=== PATIENT | male | born 1950 | race Caucasian/White ===

== ENCOUNTER 2021-08-05 09:36 | Outpatient (CLI) | payer MEDICARE, SELFPAY ==
--- NOTE | ~2021-08-05 | NM_ITS ---
EXAMINATION: NM bone scan whole body DATE: 08/05/2021 14:27 INDICATION: Prostate cancer TECHNIQUE: 24.8 mCi Tc-99m HDP was administered intravenously. Delayed whole-body scintigrams were o btained. COMPARISON: Chest radiograph and CT abdomen and pelvis dated 07/28/2021 FINDINGS: Likely degenerative joint centered uptake at the bilateral acromioclavicular joints, right greater th an left, at a few of the cervical facet joints and at several bilateral interphalangeal joints of the hands. No other suspicious foci of abnormal bone uptake to suggest metastatic disease. IMPRESSION: 1. No osseous metastatic disease. Reviewed, dictated and finalized at location A.
--- NOTE | ~2021-08-05 | CT_ITS ---
EXAMINATION: CT abdomen pelvis w con EXAM DATE: 08/05/2021 10:24 INDICATION: Prostate cancer. TECHNIQUE: Spiral CT of the abdomen and pelvis was performed following intravenous injection of 100 m L Omnipaque 350. Axial, coronal and sagittal images of the abdomen and pelvis were reviewed. The do se-length product (DLP) for this examination was 480.77 mGy-cm. The exposure was tailored according to patient size (auto mA exposure control), and iterative reconstruction (ASIR) was used as additiona l dose reduction technique. There is no prior study for comparison. FINDINGS: There is hepatic steatosis without suspicious focal lesion identified. Spleen, adrenal glan ds, pancreas are unremarkable. Gallbladder is unremarkable. No biliary obstruction. Portal and spl enic veins are patent. Kidneys enhance symmetrically. There is no hydronephrosis. The prostate is unremarkable. The bladder is unremarkable. There is no retroperitoneal or pelvic lymphadenopathy. Small bilateral inguinal fat-containing hernias. The appendix is normal. The stomach and small bowel are unremarkable. There is expected amount of c olonic stool. No free intraperitoneal gas. The heart is normal in size. There are no pericardial or pleural effusions. Triangular-shaped pleural-based nodule measuring about 10 x 15 mm, most likely small amount of pneumo david, or postinfectious residua but recommend 1-3 month follow-up chest CT to exclude possibility of l yvette cancer. If this persists a PET/CT would be appropriate. Biopsy somewhat challenging due to contig uity with the left hemidiaphragm. There is large hemangioma within the T10 vertebral body. There are no osteoblastic or osteolytic lesions identified. IMPRESSION: 1. Triangular-shaped pleural-based left lower lobe opacity appearance most consistent with infection or scarring but 1-3 month follow-up chest CT recommended and if this persists PET/CT may be appropri ate. 2. Hepatic steatosis. 3. No lymphadenopathy or osteoblastic disease. Reviewed, dictated and finalized at location B. IMPRESSION: 1. Triangular-shaped pleural-based left lower lobe opacity appearance most con sistent with infection or scarring but 1-3 month follow-up chest CT recommended and if this persists PET/CT may be appropriate. 2. Hepatic steatosis. 3. No lymphadenopathy or osteoblastic disease.
--- NOTE | ~2021-08-05 | XR_ITS ---
EXAMINATION: XR chest 2V DATE: 08/05/2021 10:06 INDICATION: Prostate cancer TECHNIQUE: PA and lateral views of the chest are obtained. COMPARISON: None available FINDINGS: The lungs are free of acute opacities. There is no pleural effusion or pneumothorax. The ca rdiomediastinal silhouette is normal. There is mild thoracic spondylosis. IMPRESSION: 1. No acute cardiopulmonary abnormality. Reviewed, dictated and finalized at location A.
[2021-08-05 10:18] LABS: Estimated Glomerular Filt Rate > 60
== END 2021-08-05 09:37 | disposition home or self-care (01) ==
PROVIDERS: PCP Family Medicine; Visit Provider Urology
DX: C61 Malignant neoplasm of prostate (principal); K76.0 Fatty (change of) liver, not elsewhere classified
CPT/HCPCS: 71046; 74177; 78306; A9561; Q9967

== ENCOUNTER 2021-09-03 07:38 | Outpatient (CLI) | payer MEDICARE, SELFPAY ==
--- NOTE | 2021-09-03 08:25 | ECG_ITS ---
Rate 60 [place] 184 QRSd 118 QT 417 QTc 418 --[place]-- P 62 QRS -2 T 39 SINUS RHYTHM Normal EKG NO PREVIOUS ECG AVAILABLE FOR COMPARISON Electronically Signed On 09-05-2021 20:44:24 CDT by Erica PERAZA
[2021-09-03 09:23] LABS: Alanine Aminotransferase 37 U/L (4-50); Albumin Level 4.2 g/dL (3.5-5.1); Alkaline Phosphatase 57 U/L (38-126); Anion Gap 7 mmol/L (8-16); Aspartate Amino Transferase 49 U/L (17-59); Bilirubin,Total 0.5 mg/dL (0.2-1.3); Blood Urea Nitrogen 20 mg/dL (9-20); Calcium 8.7 mg/dL (8.4-10.2); Carbon Dioxide 28 mmol/L (22-30); Chloride 103 mmol/L (98-107); Estimated Glomerular Filt Rate > 60; Glucose 84 mg/dL (65-110); Potassium 4.4 mmol/L (3.4-5.0); Sodium 138 mmol/L (137-145)
[2021-09-03 09:24] LABS: Partial Thromboplastin Time 28.6 SECONDS (22.3-36.8); Prothrombin Time 13.1 Seconds (11.1-14.7)
[2021-09-03 09:27] LABS: Basophils Percent Auto 0.4 % (0.2-1.2); Eosinophils Absolute Auto 0.2 K/mm3 (0-0.3); Eosinophils Percent Auto 3.1 % (0-4.4); Hematocrit 46.1 % (42.0-52.0); Immature Granulocyte Absolute 0.01 K/mm3 (0.00-0.031); Immature Granulocyte Percent A 0.2 % (0-0.5); Lymphocytes Absolute Auto 1.77 K/mm3 (0.9-3.2); Lymphocytes Percent Auto 36.3 % (18.3-44.2); Mean Corpuscular HGB Conc 32.5 g/dl (32-36); Mean Corpuscular Hemoglobin 31.1 pg (26-34); Mean Corpuscular Volume 95.4 fl (80-100); Mean Platelet Volume 10.6 fl (7.4-10.4); Monocytes Absolute Auto 0.5 K/mm3 (0.1-0.6); Monocytes Percent Auto 10.7 % (2.6-8.5); Neutrophils Absolute Auto 2.4 K/mm3 (1.3-6.7); Neutrophils Percent Auto 49.3 % (45.5-73.1); Platelet Count Result 212 k/mm3 (150-375); Red Blood Count 4.83 M/mm3 (4.6-6.20); Red Cell Distribution Width 13.2 % (11.5-14.5); White Blood Count 4.9 K/mm3 (4.5-10.0)
[2021-09-03 09:27] LABS: Add Urine Microscopic? YES; Appearance Urine Clear (Clear); Bilirubin Urine Negative (Negative); Blood Urine 1+ (Negative); Color Urine Straw (Yellow); Glucose Urine UA Negative (Negative); Ketones Urine Negative (Negative); Leukocyte Esterase Ur Negative LEU/UL (Negative); Nitrate Urine Negative (Negative); Protein Urine Negative (Negative); RBC Urine 0-2 /hpf (0-2); Urobilinogen Urine Negative mg/dL (<2.0); WBC Urine 0-3 /hpf
[2021-09-03 09:31] LABS: Specific Grav Ur 1.004 (1.001-1.035)
== END 2021-09-03 07:39 | disposition home or self-care (01) ==
LOC: ANHSURGERY 07:42
PROVIDERS: PCP Family Medicine; Visit Provider Urology
DX: C61 Malignant neoplasm of prostate (principal); Z01.818 Encounter for other preprocedural examination
CPT/HCPCS: 36415; 80053; 81001; 85025; 85610; 85730; 86850; 86900; 86901; 93005

== ENCOUNTER 2021-09-12 00:27 | Day surgery (SDC) | payer MEDICARE, SELFPAY ==
--- NOTE | 2021-09-03 07:41 | PC.NURSE ---
Report to the Outpatient Waiting Room, entrance under the green pavilion located off [facility], at time _0600_ on date _09/12/21_. OR Time: _0730_. - You and your visitor will be asked a series of questions to screen for COVID 19 for your protection. - A mask is required within the hospital. One visitor will be allowed to accompany the patient into the hospital. Patients visitor will be instructed to remain with patient at all times or leave the building. VISITING HOURS 10AM-8PM, USE MAIN ENTRANCE Preoperative COVID Testing Requirements: NONE Patients may have clear liquids (water, carbonated beverages, clear teas, apple juice) until 3 hours prior to surgery (0430 AM) with a maximum of 20 ounces. - No food from midnight until time of surgery Take the following medications with a SIP of water the morning of surgery: NONE Medications to discontinue per physician __NONE_Date to take last dose N/A Please no deodorant, or body powder the day of surgery. No jewelry (including any body piercings) or valuables the day of surgery, leave them at home. Please take a shower or bath the night before, or the morning of, surgery with an antibacterial soap. Wear comfortable, loose fitting clothing. - Jewelry must be removed prior to entering the operating room. Rings and piercings that are not removed may be cut off. - The hospital will not accept responsibility for valuables. - Please leave all valuables, including medications, at home the day of surgery. If you are going home after surgery, a licensed tilt tray driver must drive you home. - NO public transportation without another adult. - We recommend that an adult stay with you for 24 hours following discharge. - We also recommend that you do not drive, make important decision, drink alcoholic beverages, or take any drugs that were not prescribed by your health care provider for at least 24 hours after your discharge time. Follow any additional instructions given to you from DR. AVILES - BOWEL PREP Instructions given to ____PT and asked if any additional questions and then verbalized understanding. Patient advised to call surgeon office or pre surgery nurse liaison [phone] if any additional questions.
[2021-09-03 08:05] VITALS: BP 126/76; PULSE 68; RESP 20; TEMP 36.7; O2SAT 97; BMI 26.7
--- NOTE | 2021-09-03 13:20 | P.HP_ITS ---
H&P: HPI History of Present Illness Date/Time: 09/03/21 13:20 This 71-year-old gentleman was recently referred with a PSA of 5.1. Prostate ultrasound and biopsy revealed a 26.4 g prostate with adenocarcinoma Zachary 3+4=7 and Zachary 8 in 4 of 12 cores. One of the cores had a small segment intraductal carcinoma. Staging CT scan the abdomen and pelvis, bone scan and chest x-ray were all unremarkable. After discussion of therapeutic options including active surveillance, radiation therapy in its various forms, androgen ablation and radical prostatectomy he has elected for the latter. He is aware of the risk of this procedure including, but not limited to, adverse cardiopulmonary events, rectal injury, urinary incontinence, rectal dysfunction, need for adjuvant therapy. Chief Complaint: Prostate cancer Review of Systems Cardiovascular: Cardiovascular: Denies chest pain, Denies lightheadedness, Denies palpitations and Denies dyspnea Respiratory: Respiratory: Denies dyspnea Gastrointestinal: Gastrointestinal: Denies diarrhea, Denies nausea and Denies vomiting Genitourinary: Genitourinary: Denies hematuria and Denies dysuria Endocrine: Endocrine: Denies palpitations PMFSH Past Medical History Medical History Tremor Surgical History Surgical History H/O removal of cyst History of cataract surgery History of hernia surgery Family History Family History Other Family history of cardiovascular disease Family history of malignant neoplasm Hypertension Social History Social History Smoking status: Former smoker Tobacco type: cigarettes Second hand tobacco smoke exposure: No Smoking end date: 05/11/93 Additional smoking assessment comments: STATES SMOKED 1 -1 1/2PK/DAY/UNABLE TO RECALL FOR HOW LONG Alcohol intake: current Alcohol use details: STATES VERY RARELY - MAYBE 3 DRINKS/YEAR Substance use: never Substance use type: does not use Spiritual care concerns: No Meds Home Medications and Allergies Home Medications Medication Instructions Recorded Confirmed Type betamethasone dipropionate 0.05 % 1 applic TOPICAL DAILY PRN #15 g 03/08/21 09/03/21 Rx topical cream Allergies Allergy/AdvReac Type Severity Reaction Status Date / Time No Known Allergies Allergy Verified 09/03/21 08:37 Vital Signs Vital Signs - 24 hr 09/03/21 08:05 Temperature 98.1 F Pulse Rate 68 Respiratory Rate 20 Blood Pressure 126/76 Pulse Oximetry 97 Exam Const: General: no acute distress Resp: Effort & Inspection: normal respiratory effort GI: Inspection: non-distended GI Palp: No abdominal tenderness and No Guarding due to palpation present (GI) Auscultation: normal bowel sounds Assessment and Plan Assessment and plan (1) Prostate CA: Code(s): C61 - Malignant neoplasm of prostate Status: Acute Assessment and Plan: * Robotic assisted radical prostatectomy with bilateral pelvic lymphadenectomy
[2021-09-12] VITALS (11 sets, daily range): BP systolic 104–136; BP diastolic 58–92; PULSE 56–84; RESP 12–22; TEMP 36.1–36.9; O2SAT 94–100; BMI 25.9
--- NOTE | 2021-09-12 06:25 | WPDHPUPDATE1 ---
History and Physical Update Update Date/Time: 09/12/21 06:25 History and Physical has been reviewed, including an updated exam of the patient. There are NO changes in the patient's condition. Risks, benefits, and alternatives have been discussed and questions answered. Patient agrees to proceed with procedure.
--- NOTE | 2021-09-12 07:08 | WPDANESEPPF ---
Anes - Initial Pre Proc Eval Procedure: Operation Date: 09/12/21 07:30 Proposed Procedures p Robotic Assisted Prostatectomy with Bilateral Lymph Node Dissection - Filippo Zuniga MD Date/Time: 09/12/21 07:08 Surgeon: Filippo Zuniga MD Pre Op Diagnosis: Prostate Cancer Patient Data Age: 71 Gender: M Height: 1.78 m Weight: 81.8 kg Last Vital Signs Temp 36.9 C 09/12/21 07:07 Pulse 71 09/12/21 07:07 Resp 18 09/12/21 07:07 BP 136/69 09/12/21 07:07 Pulse Ox 99 09/12/21 07:07 Allergies Allergy/AdvReac Type Severity Reaction Status Date / Time No Known Allergies Allergy Verified 09/12/21 06:51 Home Medications Medication Instructions Recorded Confirmed Type betamethasone dipropionate 0.05 % 1 applic TOPICAL DAILY PRN #15 g 03/08/21 09/03/21 Rx topical cream Patient hx anesthesia problems: none Family hx anesthesia problems: none Results Review: All pre-operative results and documents have been reviewed as part of the pre-operative evaluation. [facility] [place] Past Medical History Medical History (Updated 09/12/21 @ 07:10 by Jorje Irwin DO) History of heart attack on EKG, neg stress 2019 Parkinson disease Prostate CA Tremor Surgical History Surgical History H/O removal of cyst History of cataract surgery History of hernia surgery Family History Family History Other Family history of cardiovascular disease Family history of malignant neoplasm Hypertension Social History Social History Smoking status: Former smoker Tobacco type: cigarettes Second hand tobacco smoke exposure: No Smoking end date: 05/11/93 Additional smoking assessment comments: STATES SMOKED 1 -1 1/2PK/DAY/UNABLE TO RECALL FOR HOW LONG Alcohol intake: current Alcohol use details: STATES VERY RARELY - MAYBE 3 DRINKS/YEAR Substance use: never Substance use type: does not use Living arrangements: with family Spiritual care concerns: No Anes - Eval Final PreProcedure Day of Procedure 09/12/21 07:08 Patient weight: overweight Heart: regular rate and rhythm Lungs: clear to auscultation and normal air movement Airway: Mallampati scale class II Neurological: alert and oriented Last oral intake: >/= 8 hours ASA classification: III Emergent: no Anesthetic plan: proceed Anesthesia type and monitoring: general ETT and standard monitoring Results Review: All pre-operative results and documents have been reviewed as part of the pre-operative evaluation. Informed Consent: The patient's anesthetic plan and its attendant risks and benefits were discussed with the patient/family/POA. Questions were solicited and answers provided to the satisfaction of the patient/family/POA.
[2021-09-12] MEDS: LACTATED RINGERS 1,000 ML 30 ML IV CONT ×2 (07:20→11:15)
[2021-09-12] MEDS: ceFAZolin 2 GM/D5W 50 ML 2 GM/50 ML BAG IVPB (07:25)
--- NOTE | 2021-09-12 10:28 | SUR.OPER ---
Specimens x 2 (fresh for permanent) sent with GLADYS Thomason and received in pathology by Edilia
--- NOTE | 2021-09-12 11:05 | W.PM.PROC2 ---
Procedure Note - Detailed Date of Procedure 09/12/21 Pre-op Diagnosis Prostate Cancer Post-op Diagnosis Same Procedure Performed Robotic assisted radical prostatectomy with bilateral pelvic lymphadenectomy Surgeon Filippo Zuniga MD Anesthesia General Description of Procedure The patient was brought to the operative suite, where he was prepped and draped in routine sterile fashion while in a dorsal lithotomy, deep Trendelenburg position. A supraumbilical 10 mm trocar was placed after insufflation of the abdomen with a Veress needle. Three robotic ports were then placed under direct vision. Two of these were placed in the right lower quadrant - 10 cm and 20 cm lateral to, and in line with, the umbilicus. A third robotic trocar was placed 10 cm to the left of the umbilicus, and 20 cm to the left of the umbilicus, a 12 mm standard laparoscopic trocar was placed to be used as an assistant laboratory director port. Lastly, a 5 mm trocar was placed in the left upper quadrant midway between the umbilicus and the left robotic trocar. Attention was then turned to the prostatectomy. I opted for a posterior approach in this patient. An incision was made in the parietal peritoneum along the posterior bladder/posterior prostate about 2 cm above the reflection of the peritoneum over the anterior rectum. The seminal vesicles and vas deferens were immediately identified. Dissection is undertaken in a fashion so as to avoid electrocautery as much as possible, particularly near the tips of the seminal vesicles. Dissection was also carried out in the midline so as to avoid any encounters with the ureters. The vas deferens and the seminal vesicles were dissected in their entirety to the base of the prostate. The plane anterior to Denoviller's fascia, anterior to the rectum and posterior to the prostate was then developed. I then dropped the bladder by incising the anterior parietal peritoneum just lateral to the median umbilical ligaments bilaterally. The bladder was dropped from the anterior abdominal and pelvic wall. The endopelvic fascia was identified and incised bilaterally, allowing for dissection of the posterior-lateral aspect of the prostate. The puboprostatic ligaments were transected near their origin from the posterior pubic ramus. This posterior lateral dissection of the prostate is also undertaken in a fashion so as to avoid electrocautery as much as possible. The dorsal vein of the penis is then secured with an 0 -Vicryl ligature. Attention is then turned to the bladder neck. The anterior bladder neck is incised at the vesico-prostatic junction. The previously placed urethral catheter was drawn through the urethrotomy. A very small bladder neck was maintained throughout the remainder of this dissection. The posterior bladder neck was incised in a fashion so as to avoid any injury to the ureteral orifices. Again, the small aperture of the bladder neck was maintained. The previously dissected vas deferens and the seminal vesicles were brought through the posterior bladder neck incision. The lateral prostatic pedicles were then carefully dissected from the lateral aspect of the prostate bilaterally. The prostatic pedicles were secured with Weck clips and transected. The neurovascular bundles were carefully dissected from the posterior-lateral aspect of the prostate. The dorsal vein of the penis was incised with electrocautery. Using cold scissors, the urethra was incised. After withdrawing the previously placed urethral catheter, the posterior urethra was sharply incised, as was the rectalurethralis muscle. Attention was then turned to an extended bilateral pelvic lymphadenectomy. The limits of this dissection were similar bilaterally. Specifically, the limits were the bifurcation of the common iliac vein proximally, the inguinal ligament distally, the obturator nerve posteriorly and the anterior aspect to the external iliac artery laterally. This dissection was under
[2021-09-12] MEDS: fentaNYL CITRATE INJ (*CRX) 100 MCG/2 ML VIAL 25 MCG IV PUSH ×4 (11:46→12:04)
--- NOTE | 2021-09-12 12:29 | ADMGEN ---
This patient, [place], was admitted to -. Patient/family oriented to hospital policies and general routines including ID bracelet, bed and alarms, visiting hours, pain management, procedures, bathroom and other care routines, personal items, smoking policy, room service/diet, and visiting hours. Information on how to activate the Rapid Response Team has been discussed. Patient/Family are encouraged to report perceived risks to care and to ask questions if they do not understand what they are told or what they should do.
[2021-09-12] MEDS: LACTATED RINGERS 1,000 ML 125 ML IV CONT ×2 (15:01→23:58)
--- NOTE | 2021-09-12 20:35 | ADMGEN ---
This patient, Good [place], was admitted to [facility] surg Room 314-01. Patient/family oriented to hospital policies and general routines including ID bracelet, bed and alarms, visiting hours, pain management, procedures, bathroom and other care routines, personal items, smoking policy, room service/diet, and visiting hours. Information on how to activate the Rapid Response Team has been discussed. Patient/Family are encouraged to report perceived risks to care and to ask questions if they do not understand what they are told or what they should do.
--- NOTE | 2021-09-12 20:40 | PC.NURSE ---
2034 patient transferred to room 314-01 per hospital need. patient informed of need, somewhat upset, reassured care will be excellent on 3 MS. moved per bed and report given to Emmie GRAYSON, charge nurse.
[2021-09-13 06:00] VITALS: BP 118/71; PULSE 71; RESP 18; TEMP 37.3; O2SAT 97
--- NOTE | 2021-09-13 07:01 | P.PNUR_ITS ---
Progress Note: A&P Assessment and Plan (1) Prostate CA: Code(s): C61 - Malignant neoplasm of prostate Status: Acute Assessment and Plan: * Doing well POD #1 * Increase ambulation and diet * Home later today likely Subjective Subjective Date/Time Seen: 09/13/21 07:01 Comfortable, no complaints Review of Systems Cardiovascular: Cardiovascular: Denies chest pain, Denies lightheadedness, Denies palpitations and Denies dyspnea Respiratory: Respiratory: Denies dyspnea Gastrointestinal: Gastrointestinal: Denies diarrhea, Denies nausea and Denies vomiting Genitourinary: Genitourinary: Denies hematuria and Denies dysuria Endocrine: Endocrine: Denies palpitations Exam Const: General: no acute distress Resp: Effort & Inspection: normal respiratory effort GI: Inspection: non-distended GI Palp: No abdominal tenderness and No Guarding due to palpation present (GI) Auscultation: normal bowel sounds Objective Data Vital Signs Vital Signs: Vital Signs - 24 hr 09/12/21 07:07 09/12/21 11:20 09/12/21 11:35 Temperature 98.5 F 97.8 F Pulse Rate 71 56 L 62 Respiratory Rate 18 16 16 Blood Pressure 136/69 107/66 113/66 Pulse Oximetry 99 100 100 09/12/21 11:50 09/12/21 12:05 09/12/21 12:14 Temperature 96.9 F L Pulse Rate 62 67 73 Respiratory Rate 16 16 16 Blood Pressure 104/64 107/65 110/65 Pulse Oximetry 100 97 95 09/12/21 12:25 09/12/21 12:40 09/12/21 13:25 Temperature 97.6 F 97.6 F 97.6 F Pulse Rate 73 68 67 Respiratory Rate 12 13 15 Blood Pressure 107/63 108/59 L 111/63 Pulse Oximetry 94 95 97 09/12/21 14:25 09/12/21 19:38 09/13/21 06:00 Temperature 97.7 F 97.4 F L 99.1 F Pulse Rate 65 84 71 Respiratory Rate 16 22 H 18 Blood Pressure 109/58 L 132/92 H 118/71 Pulse Oximetry 98 98 97 Intake/Output Intake/Output: Intake & Output 09/10/21 09/11/21 09/12/21 09/13/21 23:59 23:59 23:59 23:59 Intake Total 3088 500 Output Total 280 1900 Balance 2808 -1400 Meds/Results Medications: Active Medications Generic Name Dose Route Start Last Admin Trade Name Freq PRN Reason Stop Dose Admin Hyoscyamine 0.125 mg 09/12/21 13:53 Hyoscyamine Sulfate 0.125 Mg Tablet SUBLINGUAL Q4H PRN Bladder Spasm Lactated Ringer's 1,000 mls @ 125 mls/hr 09/12/21 13:53 09/12/21 23:58 Lr - Lactated Ringers Iv IV CONT 125 mls/hr .Q8H NAZARIO Administration Levofloxacin 500 mg 09/13/21 09:00 Levofloxacin 500 Mg Tablet PO DAILY NAZARIO Naloxone HCl 0.1 mg 09/12/21 13:53 Naloxone Hcl 0.4 Mg/Ml Vial IV PUSH Q2M PRN Opiate Reversal Triamcinolone Acetonide 1 applic 09/12/21 13:53 Triamcinolone Acet 0.1% Cream 15 Gm Tube TOPICAL DAILY PRN skin irritation
[2021-09-13 07:08] LABS: Hematocrit 37.6 % (42.0-52.0); Hemoglobin 12.6 g/dL (14.0-18.0)
[2021-09-13 07:20] LABS: Anion Gap 3 mmol/L (8-16); Blood Urea Nitrogen 12 mg/dL (9-20); Calcium 7.8 mg/dL (8.4-10.2); Carbon Dioxide 26 mmol/L (22-30); Chloride 104 mmol/L (98-107); Estimated CRCL calculation 61 ml/min; Estimated Glomerular Filt Rate > 60; Glucose 119 mg/dL (65-110); Potassium 3.8 mmol/L (3.4-5.0); Sodium 133 mmol/L (137-145)
[2021-09-13 07:38] VITALS: BP 120/72; PULSE 72; RESP 18; TEMP 37.2; O2SAT 97
[2021-09-13] MEDS: levoFLOXacin 500 MG TABLET PO (08:12)
[2021-09-13 11:38] VITALS: BP 122/70; PULSE 85; RESP 18; TEMP 37.1; O2SAT 94
--- NOTE | 2021-09-13 13:32 | PM.DS ---
DS: Admitting Diagnosis Discharge Date 09/13/2021 Admitting Diagnosis Prostate cancer DS: Discharge Diagnosis Discharge Diagnosis (1) Prostate CA: Code(s): C61 - Malignant neoplasm of prostate Status: Acute DS: Summary Hospital Course Hospital Course: This patient was admitted on the morning of his planned robotic prostatectomy. This procedure was uneventful, as was his postoperative course. By the evening of the procedure he was sitting at the bedside in tolerating a liquid diet. The following morning he was ambulating freely and tolerating regular food. His catheter drainage remained essentially clear throughout. His postoperative hemoglobin and serum creatinine were unremarkable. At the time of discharge he has been instructed in appropriate care for his Valenzuela catheter with both a leg bag and bedside bag. He will be discharged with plans to follow-up in 1 week with a cystogram. Time Spent with Patient Time attestation: Total time spent providing and/or coordinating discharge services: 15 min. Exam Const: General: no acute distress Resp: Effort & Inspection: normal respiratory effort GI: Inspection: non-distended GI Palp: No abdominal tenderness and No Guarding due to palpation present (GI) Auscultation: normal bowel sounds DS: Data Data Completed and Pending Pending studies at discharge: Pending at discharge 09/12/21 10:24 Surgical [PTH] Routine Surgical [PTH] Routine Labs on day of discharge: Labs from last 24 hours 09/13/21 09/13/21 06:04 06:04 Hgb 12.6 L Hct 37.6 L Sodium 133 L Potassium 3.8 Chloride 104 Carbon Dioxide 26 Anion Gap 3 L BUN 12 D Creatinine 1.00 Estim Creat Clear Calc 61 Estimated GFR > 60 Glucose 119 H Calcium 7.8 L Discharge Plan Discharge Patient Disposition: Home, Self-Care Discharge Instructions: 1) Valenzuela catheter -> leg bag / bedside bag at night. 2) No lifting/straining >15lbs. x3 weeks. 3) No driving x1-week. 4) Resume normal, pre-operative diet. 5) My office will contact regarding follow-up in 1-week with cystogram. Patient Instructions: Antibiotic Form, Valenzuela Catheter Placement and Care (DC), Urinary Leg Bag (GEN), How to Change a Catheter Drainage Bag (DC) Stand Alone Forms: General Discharge Instructions Discharge Orders: Discharge Order (Routine); Ordered 09/13/21 Ordered By: Filippo Zuniga Discharge Medications: New ciprofloxacin HCl 500 mg tablet 500 mg PO Q12H Qty: 10 RF: 0 docusate sodium [Colace] 100 mg capsule 100 mg PO DAILY Qty: 30 RF: 0 hydrocodone-acetaminophen 5-325 mg tablet 1 - 2 tablet PO Q6H PRN (Reason: pain) Qty: 30 RF: 0 hyoscyamine sulfate 0.125 mg tablet 0.125 mg PO Q6H PRN (Reason: bladder spasms) Qty: 20 RF: 2 Continued betamethasone dipropionate 0.05 % cream 1 applic topical DAILY PRN (Reason: skin irritation) Qty: 15 RF: 0
--- NOTE | 2021-09-13 14:41 | WPDANESPN ---
Anes - Prog Note Post-Op Date/Time: 09/13/21 14:41 Cardiovascular status: normal Respiratory status: normal Airway patency: baseline Mental status: baseline Post-Op hydration status: normal Vital Signs: Last Vital Signs Temp 37.1 C 09/13/21 11:38 Pulse 85 09/13/21 11:38 Resp 18 09/13/21 11:38 BP 122/70 09/13/21 11:38 Pulse Ox 94 09/13/21 11:38 Pain Score (VAS): 3 I/O: Intake & Output 09/12/21 09/13/21 09/13/21 23:59 07:59 15:59 Intake Total 2394 527 6387 Output Total 250 1900 Balance 1190 -1400 1540 Laboratory Tests 09/13/21 06:04 09/13/21 06:04 09/13/21 09/13/21 06:04 06:04 Hgb 12.6 L Hct 37.6 L Sodium 133 L Potassium 3.8 Chloride 104 Carbon Dioxide 26 Anion Gap 3 L BUN 12 D Creatinine 1.00 Estim Creat Clear Calc 61 Estimated GFR > 60 Glucose 119 H Calcium 7.8 L Post-procedural complaints: none Patient Feedback: Patient satisfied with anesthetic care.
== END 2021-09-13 14:25 | disposition home or self-care (01) ==
LOC: ANHSURGERY 06:17 → ANH2MED 14:00 → ANH3MEDSUR 20:42
PROVIDERS: PCP Family Medicine; Visit Provider Urology
PROC: 0VT04ZZ Resection of Prostate, Percutaneous Endoscopic Approach (ICD-10-PCS; CPT 55867; principal; 2021-09-12 07:30)
DX: C61 Malignant neoplasm of prostate (principal); G20 Parkinson's disease; I25.2 Old myocardial infarction; Z87.891 Personal history of nicotine dependence
CPT/HCPCS: 55866; 38571; S2900; 36415; 80048; 80053; 81001; 85014; 85018; 85025; 85610; 85730; 86850; 86900; 86901; 88305; 88309; 93005; A9270; J0131; J0690; J1100; J1170; J2250; J2405; J2704; J3010; J7030; J7120; Q9968

== ENCOUNTER 2021-09-20 06:47 | Outpatient (CLI) | payer MEDICARE, SELFPAY ==
--- NOTE | ~2021-09-20 | XR_ITS ---
EXAMINATION: XR cystogram DATE: 09/20/2021 07:40 INDICATION: Patient status post prostatectomy on 09/12/2021 TECHNIQUE: Water-soluble contrast was gravity-infused through the patient's Valenzuela catheter. Multiple fluoroscopic images were obtained. Fluoroscopy exposure time was 1.0 minutes. The DAP for this proced ure was 17.904 Gycm2. COMPARISON: None. FINDINGS: A Valenzuela catheter is present in the bladder. The bladder contour is normal. No bladder leak is identified. There are phleboliths of the pelvis. There is mild right and moderate left hip osteoar thritis. The bowel gas pattern is normal. IMPRESSION: 1. No evidence of bladder leak. Reviewed, dictated and finalized at location A.
== END 2021-09-20 06:48 | disposition home or self-care (01) ==
PROVIDERS: PCP Family Medicine; Visit Provider Urology
DX: C61 Malignant neoplasm of prostate (principal)
CPT/HCPCS: 51600; 74430; Q9967

== ENCOUNTER 2023-02-27 11:25 | Outpatient (CLI) | payer MEDICARE, SELFPAY ==
--- NOTE | ~2023-02-27 | PE_ITS ---
EXAMINATION: PET_PETPSMAST_PT DATE: 02/27/2023 14:14 INDICATION: Prostate cancer TECHNIQUE: 8.849 mCi of pipflufolastat F-18 ([id number]) was administered i.v. Low dose computed to mography (CT) images were acquired from the base of the brain to the base of the brain to the proxima l thighs for attenuation correction and anatomic localization. Positron emission tomography (PET) will ges were acquired in the same distribution beginning 115 minutes after injection. Images including fu sed PET/CT images were reconstructed in axial, coronal, and sagittal planes. Automated exposure contr ol technique was employed. The dose-length product was 670.49mGy-cm. COMPARISON: 08/05/2021 FINDINGS: Head/neck: Typical pattern of symmetric physiologic increased activity in the lacrimal, parotid and submandibula r glands as well as along the mucosa of the nasal and oral cavities, the demetri-, naso- and hypopharynx, the glottis and esophagus. There is also a typical pattern of symmetric tiny foci of mild likely phy siologic neural ganglia uptake at a few bilateral cervical neural foramina. No pathologically enlarge d cervical lymphadenopathy or suspicious foci of increased uptake in the visualized head or neck. Chest: No significant change in a 2.6 x 1.2 cm peripheral left lower lobe soft tissue density with mild upta ke with maximal SUV of 3.6 at the left costophrenic angle with identical measurements on CT from a ye ar and half prior on 07/28/2021 most likely related to atelectasis/scarring. No other suspicious pulmo nary nodules, pneumonia, pulmonary edema or other pulmonary infiltrates. No pleural effusion. Heart s ize is normal. Atherosclerotic coronary artery calcific a cyst. No pericardial effusion. Thoracic aor ta is normal in caliber. No pathologically enlarged or PSMA avid thoracic lymphadenopathy. Abdomen/pelvis/proximal thighs: Physiologic renal accumulation and excretion of activity in the kidneys, bladder and along portions o f ureters. Postoperative change of prior prostatectomy with no evident solid soft tissue component or abnormal uptake outside of the intraluminal urine activity at the prostatectomy bed. Normal degree a nd slightly heterogenous pattern of increased uptake throughout the liver and spleen without radiolog ic correlate or dominant PSMA avid lesion. The gallbladder, pancreas and bilateral adrenal glands are normal. Moderate uptake scattered throughout the bowels with typical duodenal and proximal jejunal p redominance and without radiologic correlate, also likely physiologic. No other abnormal foci of incr eased uptake or pathologically enlarged lymphadenopathy in the abdomen, pelvis or proximal thighs. Musculoskeletal: T10 hemangioma. Severe lower cervical and moderate thoracic and lower lumbar spondylosis. No suspicio us lytic, blastic or PSMA avid bone activity to suggest osseous metastatic disease. IMPRESSION: 1. No suspicious PSMA avid lesions to suggest residual, locally recurrent or metastatic disease. 2. No interval change in a 2.6 x 1.2 cm region of chronic left lower lobar consolidation at the left costophrenic angle most likely atelectasis/scarring. Reviewed, dictated and finalized at location A. IMPRESSION: 1. No suspicious PSMA avid lesions to suggest residual, locally recurrent or me tastatic disease. 2. No interval change in a 2.6 x 1.2 cm region of chronic left lower lobar cons olidation at the left costophrenic angle most likely atelectasis/scarring.
== END 2023-02-27 11:26 | disposition home or self-care (01) ==
PROVIDERS: PCP Family Medicine; Visit Provider Urology
DX: C61 Malignant neoplasm of prostate (principal)
CPT/HCPCS: 78815; A9595

== ENCOUNTER → 2023-07-14 12:42 | Outpatient (CLI) | payer MEDICARE, SELFPAY ==
--- NOTE | ~2023-07-14 | XR_ITS ---
AP view of the pelvis and AP and lateral views of the left hip Clinical history: Pain Findings: No acute fracture or dislocation is seen. Osseous alignment is anatomic. Bilateral hip and SI joint spaces are preserved. Soft tissues are unremarkable. Impression: No significant abnormality is seen. Reviewed, dictated and finalized at [facility]. CHING SUPERVISOR Impression: No significant abnormality is seen.
--- NOTE | ~2023-07-14 | XR_ITS ---
Lumbosacral Spine: AP and lateral views Clinical History: Pain Findings: The normal lordotic curve is maintained. The vertebral bodies and posterior elements are i ntact. There is mild degenerative disc narrowing throughout the lumbar spine. There is moderate facet arthropathy throughout the lumbar spine. The sacroiliac joints are normally outlined. Impression: Mild degenerative spondylosis overall, as detailed above. Reviewed, dictated and finalized at location . ITTER Impression: Mild degenerative spondylosis overall, as detailed above.
== END ==
PROVIDERS: PCP Family Medicine; Visit Provider Family Medicine
DX: M25.552 Pain in left hip (principal); M47.896 Other spondylosis, lumbar region
CPT/HCPCS: 72100; 73502

== ENCOUNTER 2023-08-25 13:30 | Outpatient (RCR) | payer MEDICARE, SELFPAY ==
--- NOTE | 2023-07-28 13:58 | PTOPEVAL1 ---
Assessment and note entered by Chaparro Hernández, PT Evaluation Information Assessment Status Evaluation Diagnosis left Hip pain, Left knee pain Onset June 2023 Subjective Information Reports that when walking in June he twisted and had a shooting pain down his left leg. Every since he has noticed increased pain in hip and leg with activity. Pain has been of and on based on activity. Currently working at [employer] and active in yard at home. He is getting some leg soreness and tiredness still. Reported Pain Level Pain Score 1: Self Report Assessment PT Clinical Summary Patient presents with signs and symptoms consistent with left hip osteoarthritis and lumbar stenosis. Will benefit from skilled therapy to address deficits and improve both posture and joint ROM to normalize gait and improve gross pain free function. Plan of Care Interventions Check Out for Orthotic/Pr,Electrical Stimulation, Hot Pack/Cold Pack,Manual Therapy,Mechanical Traction,Neuro Re-education,Patient/Caregiver Educati,Therapeutic Activities,Therapeutic Exercise PT Services Indicated Yes Treatment Frequency and 2x/week for 8 visits Duration These treatments will address the objective and functional deficits as defined above. The patient will be advanced safely and appropriately in order for the patient to progress towards his/her prior level of function. Additional exercises will be introduced and as well as a comprehensive home exercise program upon discharge, if needed, ?to ensure carryover of functional gains achieved in the clinic. This treatment plan has been reviewed and agreement upon by the patient.
--- NOTE | 2023-07-28 13:58 | OPREHPOC ---
Outpatient Therapy Plan of Care This is a Multidisciplinary Plan of Care that may contain components documented by all disciplines (PT, OT, and ST.) PT Problem 1 PT Problem #1 Knowledge Deficit PT Goal 1 Goal [place] with HEP Target Visit 4 PT Problem 2 PT Problem #2 Pain PT Goal 1 Goal Patient will report minimal pain with ambulation walking no greater than 1/10 Target Visit 4 PT Problem 3 PT Problem #3 Impaired Range of Motion PT Goal 1 Goal Achieve 40 degrees of hip abduction ROM to reduce capsular adduction restriction to improve gait and functional activity. PT Goal 2 Goal Patient will achieve 10+ degrees of left hip extension to improve terminal stance of gait and stride with ambulation Target Visit 8 PT Problem 4 PT Problem #4 Impaired Gait PT Goal 1 Goal Patient will demonstrate improved posturing with gait pattern indicated by reduced forward flexion with foot progression Target Visit 8
--- NOTE | 2023-08-25 15:03 | PTOPDC ---
Assessment and note entered by Chaparro Hernández, PT Evaluation Information Assessment Status Discharge Diagnosis left Hip pain, Left knee pain Onset June 2023 Subjective Information Reports that he feels he is doing much better overall. Feels very comfortable with current exercise program and has been doing consistently every morning. Would like to discharge to [facility] at his time. Reported Pain Level Pain Score 0: Self Report Assessment PT Clinical Summary Patient has met all goals for therapy at this time and is suitable for discharge to [facility] at this time . He has a solid understanding of [facility] and has been consistent with performance. Plan of Care PT Services Indicated D/C to [facility]
--- NOTE | 2023-08-25 15:04 | OPREHPOC ---
Outpatient Therapy Plan of Care This is a Multidisciplinary Plan of Care that may contain components documented by all disciplines (PT, OT, and ST.) PT Problem 1 PT Problem #1 Knowledge Deficit PT Goal 1 Goal [place] with HEP Target Visit 4 Progress Met PT Problem 2 PT Problem #2 Pain PT Goal 1 Goal Patient will report minimal pain with ambulation walking no greater than 1/10 Target Visit 4 Progress Met PT Problem 3 PT Problem #3 Impaired Range of Motion PT Goal 1 Goal Achieve 40 degrees of hip abduction ROM to reduce capsular adduction restriction to improve gait and functional activity. Progress Met PT Goal 2 Goal Patient will achieve 10+ degrees of left hip extension to improve terminal stance of gait and stride with ambulation Target Visit 8 Progress Met PT Problem 4 PT Problem #4 Impaired Gait PT Goal 1 Goal Patient will demonstrate improved posturing with gait pattern indicated by reduced forward flexion with foot progression Target Visit 8 Progress Partially Met
== END 2023-08-26 11:22 | disposition home or self-care (01) ==
LOC: ANHGOSHPT 13:30
PROVIDERS: PCP Family Medicine; Visit Provider Family Medicine
DX: M25.552 Pain in left hip (principal); M25.562 Pain in left knee
CPT/HCPCS: 97110; 97140; 97161; 97530; 99199

== ENCOUNTER 2024-08-26 09:09 | Outpatient (CLI) | payer MEDICARE, SELFPAY ==
--- NOTE | ~2024-08-26 | PE_ITS ---
EXAMINATION: PET_PETPSMAST_PT DATE: 08/26/2024 11:42 INDICATION: Prostate cancer TECHNIQUE: 8.849 mCi of Illucix Ga-68([id number]) was administered i.v. Low dose computed casi graphy (CT) images were acquired from the base of the brain to the base of the brain to the proximal thighs for attenuation correction and anatomic localization. Positron emission tomography (PET) image s were acquired in the same distribution. Images including fused PET/CT images were reconstructed in axial, coronal, and sagittal planes. Automated exposure control technique was employed. The dose-piper th product was 1113.40mGy-cm. COMPARISON: 02/27/2023 FINDINGS: Head/neck: Typical pattern of symmetric physiologic increased activity in the lacrimal, parotid and submandibula r glands as well as along the mucosa of the nasal and oral cavities, pharynx and hypopharynx. No path ologically enlarged cervical lymphadenopathy or suspicious foci of increased uptake in the visualized head or neck. Chest: No significant change since 07/28/2021 in a 2.5 x 1.2 cm solid lesion at the peripheral anterobasilar left lower lobe with mild activity with maximal SUV of 3.1 Slight atelectasis/scarring. No other suspicious pulmonary nodules, pneumonia or pleural effusion. He art size is normal. Atherosclerotic coronary artery calcific location. No pericardial effusion. Thora cic aorta is normal in caliber. No pathologically enlarged or PSMA avid thoracic lymphadenopathy. Abdomen/pelvis/proximal thighs: Physiologic renal accumulation and excretion of activity in the kidneys, bladder and along portions o f ureters. Postoperative change of prior prostatectomy with no evident solid soft tissue component or abnormal uptake outside of the intraluminal urine activity at the prostatectomy bed. Normal degree a nd slightly heterogenous pattern of increased uptake throughout the liver and spleen without radiolog ic correlate or dominant PSMA avid lesion. The gallbladder, pancreas and bilateral adrenal glands are normal. Moderate uptake scattered throughout the bowels with typical duodenal and proximal jejunal p redominance and without radiologic correlate, also likely physiologic. No other abnormal foci of incr eased uptake or pathologically enlarged lymphadenopathy in the abdomen, pelvis or proximal thighs. Musculoskeletal: Severe lower cervical spondylosis. Lucent T10 hemangioma with thickened vertical trabecular pattern. No suspicious lytic, blastic or PSMA thoracic bone lesions to suggest osseous metastatic disease. IMPRESSION: 1. Status post prostatectomy with no evident residual, locally recurrent or metastatic disease. 2. Stable appearance of a 2.5 x 1.2 cm region of consolidation at the anterobasilar left lower lobe m ost likely atelectasis/scarring Reviewed, dictated and finalized at location A. IMPRESSION: 1. Status post prostatectomy with no evident residual, locally recurrent or met astatic disease. 2. Stable appearance of a 2.5 x 1.2 cm region of consolidation at the anterobas ilar left lower lobe most likely atelectasis/scarring
--- OUTSIDE RECORDS SUMMARY | 2024-08-26 09:19 | XMS_ITS | Referral Summary ---
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
--- OUTSIDE RECORDS SUMMARY | 2024-08-26 09:19 | XMS_ITS | Clinical Summary ---
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
== END 2024-08-26 09:10 | disposition home or self-care (01) ==
PROVIDERS: PCP Family Medicine; Visit Provider Urology
DX: J18.1 Lobar pneumonia, unspecified organism (principal); Z90.79 Acquired absence of other genital organ(s); C61 Malignant neoplasm of prostate
CPT/HCPCS: 78815; A9596

== ENCOUNTER 2024-09-21 07:26 | Outpatient (CLI) | payer MEDICARE, SELFPAY ==
--- NOTE | ~2024-09-21 | MR_ITS ---
EXAMINATION: MR pelvis wo/w con DATE: 09/21/2024 09:23 INDICATION: Prostate cancer TECHNIQUE: Full-field sequences of the pelvis included axial and coronal T2-weighted SS FSE, axial, s agittal and coronal 2D FIESTA, axial 2D FIESTA FS, axial SSFSE-IR EWA, axial dual-echo T1-weighted FS PGR, axial and coronal T1 weighted LAVA, 3D axial T2 Cube, axial diffusion-weighted SE with apparent diffusion coefficient (ADC) maps. Postcontrast sequences included a time course axial T1-weighted LAV A and sagittal and coronal T1-weighted LAVA. COMPARISON: CT dated 08/05/2021 FINDINGS: Status post prostatectomy. No evident abnormal soft tissue density at the prostatectomy bed to sugges t residual or locally recurrent disease. Bladder is otherwise unremarkable. Visualized portions of ruth wels including the appendix are normal. No free fluid in the pelvis. No pathologically enlarged pelvi c or inguinal lymphadenopathy. Small right-sided and moderate left-sided hydroceles. Small bilateral fat-containing inguinal hernias. Visualized bone marrow signal is normal. IMPRESSION: 1. Status post prostatectomy with no evident residual/recurrent disease or pelvic metastatic disease. 2. Small right and moderate-sized left hydroceles. Reviewed, dictated and finalized at location A. IMPRESSION: 1. Status post prostatectomy with no evident residual/recurrent disease or pelv ic metastatic disease. 2. Small right and moderate-sized left hydroceles.
--- OUTSIDE RECORDS SUMMARY | 2024-09-21 07:29 | XMS_ITS | Referral Summary ---
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
--- OUTSIDE RECORDS SUMMARY | 2024-09-21 07:29 | XMS_ITS | Clinical Summary ---
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
== END 2024-09-21 07:27 | disposition home or self-care (01) ==
PROVIDERS: PCP Family Medicine; Visit Provider Radiology Radiation Oncology
DX: C61 Malignant neoplasm of prostate (principal); N43.3 Hydrocele, unspecified
CPT/HCPCS: 72197; A9579